=== PATIENT | male | born 2000 | race Native Hawaiian/Other Pacific Islander ===

== ENCOUNTER 2021-04-08 08:41 | Outpatient (CLI) | payer OTHER ==
[~2021-04-08] VITALS: Ht 185.4 cm; Wt 108.9 kg
== END 2021-04-08 20:25 | disposition home or self-care (01) ==
LOC: INF 08:41
PROVIDERS: ATTEND Family Medicine
DX: U07.1 COVID-19 (principal); Z23 Encounter for immunization
CPT/HCPCS: 96365; M0244; Q0247